=== PATIENT | male | born 1955 | race Caucasian/White ===

== ENCOUNTER 2018-05-30 13:23 | Emergency (ER) | payer MEDICARE ==
[~2018-05-30] VITALS: Ht 180.3 cm; Wt 90.7 kg
[~2018-05-30 13:23] MED LIST: AMOXICILLIN875 MG PO; ANTIVERT12.5 MG PO; ASPIRIN EC81 M1 PO; ASPIRIN325 PO; ATORVASTATIN CA10 MG PO; AZITHROMYCIN 2250 MG PO; CALCIUM 500 +1 EAC5 PO; CARVEDILOL6.25 MG; CARVEDILOL6.25 MG PO; CEFDINIR300 MG PO; CENTRUM SILVER1 EAC2 PO; COREG; COREG CR20 MG; DOXYCYCLINE 10100 M1 PO; DUONEB 2.5-0.5 M3 ML INH; FENOFIBRATE160 MG PO; FLEXERIL PO; GLUCOPHAGE500 MG; GLYBURIDE 5 MG T5 M1 PO; HYDROCODONE-AP1 EAC6 PO; IBUPROFEN 800800 M1 PO; IMDUR 30 MG TAB30 M1 PO; INVOKANA100 MG PO; JANUMET 50-1,01 EACH PO; JANUMET 50-5001 EACH; JANUMET XR 50-1 EAC1 PO; LIPITOR 10 MG10 M1 PO; MEDROLDOSEPACK PO; METFORMIN; MOBIC15 MG PO; NITROGLYCERIN0.4 MG SUBLING; NORCO 5-325 TA1 EACH PO; PENICILLIN VK500 M1 PO; PREDNISONE 10 M10 M1 PO; PREDNISONE 10 M10 MG PO; PREVACID30 MG PO; PROAIR HFA8.5 GM INH; TOPAMAX 100 MG100 MG PO; TOPAMAX100 MG PO; TRICOR145 MG PO; VENTOLIN HFA 1818 GM INH; VIMPAT100 MG PO; VYTORIN 10-401 EACH; ZOFRAN ODT4 MG PO; ZPAK PO
[2018-05-30] MEDS ORDERED: NEXIUM40 MG PO (13:39)
[2018-05-30] MEDS ORDERED: VITAMIN D1000 UNI1 PO (13:39)
[2018-05-30] MEDS ORDERED: NORCO 5-325 TA1 EACH PO (13:40)
[2018-05-30] MEDS ORDERED: LISINOPRIL5 MG PO (13:41)
[2018-05-30] MEDS ORDERED: IPRAT-ALBUT 0.5-3 ML INH (13:41)
[2018-05-30] MEDS ORDERED: NITROSTAT0.4 M1 PO (13:42)
[2018-05-30 14:10] LABS: HEMATOCRIT 42.2 % (42.0-52.0); MCH 27.9 pg (26.0-34.0); MCHC 33.2 g/dL (28.0-37.0); MCV 83.8 fL (80.0-100.0); MPV 8.8 fl. (7.2-11.1); NUCLEATED RBCS 0 /100WBC; PLATELET COUNT* 317 thou/uL (150-400); RBC 5.03 mil/uL (4.50-6.00); WBC 14.8 thou/uL (4.0-11.0)
[2018-05-30 14:18] LABS: ANION GAP 10 mmol/L (7-16); BUN 23 mg/dL (7-18); CALCIUM 9.3 mg/dL (8.5-10.1); CHLORIDE 102 mmol/L (98-107); CO2 23 mmol/L (21-32); CREATININE 1.4 mg/dL (0.6-1.3); GLUCOSE 215 mg/dL (70-99); POTASSIUM 4.4 mmol/L (3.5-5.1); SODIUM 135 mmol/L (136-145)
[2018-05-30 14:25] LABS: ALBUMIN 3.6 g/dL (3.4-5.0); ALKALINE PHOSPHATASE 56 U/L (46-116); SGOT 17 U/L (15-37); SGPT 33 U/L (30-65); TOTAL BILIRUBIN 0.6 mg/dL (<0.1-1.0); TROPONIN-I LEVEL <0.06 ng/mL (<0.06)
[2018-05-30 14:30] LABS: ABSOLUTE BASOPHILS 0.1 thou/uL (0.0-0.2); ABSOLUTE EOSINOPHILS 0.1 thou/uL (0.0-0.7); ABSOLUTE LYMPHOCYTES 1.3 thou/uL (0.8-5.3); ABSOLUTE MONOCYTES 0.4 thou/uL (0.0-1.2); ABSOLUTE NEUTROPHILS 12.7 thou/uL (1.6-8.1); PLATELET ESTIMATE ADEQUATE
[2018-05-30 15:19] LABS: URINE BILIRUBIN NEGATIVE (Negative); URINE BLOOD NEGATIVE (Negative); URINE CLARITY CLEAR; URINE COLOR YELLOW; URINE GLUCOSE-RANDOM 3+ (Negative); URINE KETONES NEGATIVE (Negative); URINE LEUKOCYTES-REFLEX NEGATIVE (Negative); URINE NITRITE-REFLEX NEGATIVE (Negative); URINE PROTEIN NEGATIVE (Negative); URINE SPECIFIC GRAVITY 1.015 (1.005-1.030); URINE UROBILINOGEN 0.2 E.U./dl (0.2-1.0)
[2018-05-30 15:25] LABS: AMP/METHAMP Negative (Negative); BARBITURATES Negative (Negative); BENZODIAZEPINES Negative (Negative); COCAINE Negative (Negative); METHADONE Negative (Negative); OPIATES Negative (Negative); PCP Negative (Negative); THC Negative (Negative)
[2018-05-30 17:25] VITALS: BP 151/83
--- NOTE | 2018-06-01 13:30 | EKG ---
[place] [address] ELECTROCARDIOGRAM REPORT Name: DANITZA CUMMINS Room: [facility]#: [id number] Admission: 05/30/18 Attend Phys: Discharge: 05/30/18 Date of : 57 Report #: [id number] THIS REPORT FOR: //name// [facility] ED Test Date: 2018-05-30 Test Time: 13:32:53 Pat Name: DANITZA CUMMINS Department: Room: Gender: M Trauma Coordinator: Juan Jose MACDONALD : 1955 Requested By: Sonia dEwards Order Number: [id number] MD: Mark Eldridge Measurements Intervals [place] Rate: 106 P: 53 [place]: 156 QRS: 17 QRSD: 115 T: 30 QT: 342 QTc: 455 Interpretive Statements sinus tach Nonspecific intraventricular conduction delay Inferior infarct, old Compared to ECG 03/28/2017 08:03:09 Intraventricular conduction delay now present Myocardial infarct finding still present Electronically Signed On 06-01-2018 13:30:14 CDT by Mark Eldridge [email or web address] <ELECTRONICALLY SIGNED> By: Mark Eldridge MD, [facility] 06/01/18 1330 1332 1332 Mark Eldridge MD, [facility] /EPI
== END 2018-05-30 17:25 | disposition home or self-care (01) ==
LOC: M.ERS 13:23
PROVIDERS: Nurse Practitioner Family
DX: R55 Syncope and collapse (principal); R06.00 Dyspnea, unspecified; E11.9 Type 2 diabetes mellitus without complications; J45.909 Unspecified asthma, uncomplicated; E78.00 Pure hypercholesterolemia, unspecified; I10 Essential (primary) hypertension; Z88.8 Allergy status to other drugs, medicaments and biological substances

== ENCOUNTER → 2018-10-27 | Outpatient (CLI) | payer MEDICARE ==
[~2018-10-27] MED LIST changes: +IPRAT-ALBUT 0.5-3 ML INH; +LISINOPRIL5 MG PO; +NEXIUM40 MG PO; +NITROSTAT0.4 M1 PO; +VITAMIN D1000 UNI1 PO
== END ==
LOC: M.ULTRA 10-19 13:00
DX: I73.9 Peripheral vascular disease, unspecified (principal); M79.661 Pain in right lower leg; M79.662 Pain in left lower leg

== ENCOUNTER → 2019-04-06 | Outpatient (CLI) | payer MEDICARE ==
--- NOTE | 2019-04-06 13:25 | 2DMMODE ---
[place] [address] 2 D/M-MODE ECHOCARDIOGRAM Name: GAUTAM CUMMINS Room: [facility]#: [id number] Admission: 04/06/19 Attend Phys: Gilles Cyr, Discharge: Date of : 57 Date of Service: 04/06/19 1325 Report #: [id number] THIS REPORT FOR: //name// APPROVED REPORT Study performed: 04/06/2019 10:53:16 EXAM: Comprehensive 2D, Doppler, and color-flow Echocardiogram Patient Location: Out-Patient BSA: 2.06 HR: 80 bpm BP: 130/74 mmHg Other Information Study Quality: Good Indications CAD Cardiomyopathy Volumes Left Atrial Volume (Systole) LA ESV Index: 14.00 mL/m2 Left Ventricle The left ventricle is normal size. akinesis noted of the base of the inferior wall There is normal left ventricular wall thickness. Left ventricular systolic function is mildly decreased. LVEF is 40-45%. Grade I - abnormal relaxation pattern. Right Ventricle The right ventricle is normal size. The right ventricular systolic function is normal. Atria The left atrium size is normal. The right atrium size is normal. Aortic Valve Aortic valve is mildly calcified. No aortic regurgitation is present. There is no aortic valvular stenosis. Mitral Valve Mild mitral annular calcification. [place] [address] 2 D/M-MODE ECHOCARDIOGRAM Name: GAUTAM CUMMINS Room: [facility]#: [id number] Admission: 04/06/19 Attend Phys: Gilles Cyr, Discharge: Date of : 57 Date of Service: 04/06/19 1325 Report #: [id number] regurgitation noted. No evidence of mitral valve stenosis. Tricuspid Valve The tricuspid valve is normal in structure. There is no tricuspid valve regurgitation noted. Pulmonic Valve The pulmonary valve is normal in structure. There is no pulmonic valvular regurgitation. Great Vessels The aortic root is normal in size. IVC is normal in size and collapses >50% with inspiration. Pericardium There is no pericardial effusion. <Conclusion> LVEF is 40-45%. akinesis noted of the base of the inferior wall Aortic valve is mildly calcified. <ELECTRONICALLY SIGNED> By: Gautam Escobedo MD, FAC 04/06/19 1325 24 24 Gautam Escobedo MD, FAC /INF
== END ==
LOC: M.CRD 10:47
DX: I08.0 Rheumatic disorders of both mitral and aortic valves (principal); I25.10 Atherosclerotic heart disease of native coronary artery without angina pectoris; I25.5 Ischemic cardiomyopathy

== ENCOUNTER 2020-09-02 06:36 | Emergency (ER) | payer MEDICARE ==
[~2020-09-02] VITALS: Ht 175.3 cm; Wt 83.9 kg
[2020-09-02 07:05] LABS: ABSOLUTE BASOPHILS 0.1 thou/uL (0.0-0.2); ABSOLUTE EOSINOPHILS 0.3 thou/uL (0.0-0.7); ABSOLUTE LYMPHOCYTES 1.7 thou/uL (0.8-5.3); ABSOLUTE MONOCYTES 0.7 thou/uL (0.0-1.2); ABSOLUTE NEUTROPHILS 3.6 thou/uL (1.6-8.1); BASOPHILS 2.3 %; EOSINOPHILS 4.6 %; HEMATOCRIT 35.6 % (42.0-52.0); LYMPHOCYTES 26.6 %; MCH 27.5 pg (26.0-34.0); MCHC 33.8 g/dL (28.0-37.0); MCV 81.3 fL (80.0-100.0); MONOCYTES 10.7 %; MPV 7.9 fl. (7.2-11.1); NUCLEATED RBCS 0 /100WBC; PLATELET COUNT* 356 thou/uL (150-400); POLYS 55.8 %; RBC 4.38 mil/uL (4.50-6.00); RDW-CV 14.8 % (10.5-14.5); WBC 6.5 thou/uL (4.0-11.0)
[2020-09-02 07:15] LABS: CREATININE 1.1 mg/dL (0.6-1.3); POTASSIUM 4.5 mmol/L (3.5-5.1)
[2020-09-02 07:17] LABS: INR 1.1; PROTIME 11.1 Seconds (9.20-11.50)
[2020-09-02 07:24] LABS: ALBUMIN 3.7 g/dL (3.4-5.0); MAGNESIUM 1.5 mg/dL (1.8-2.4); TOTAL BILIRUBIN 0.6 mg/dL (<0.1-1.0); TOTAL PROTEIN 7.1 g/dL (6.4-8.2)
[2020-09-02 08:47] LABS: URINE BILIRUBIN NEGATIVE (Negative); URINE BLOOD TRACE (Negative); URINE CLARITY CLEAR; URINE COLOR YELLOW; URINE GLUCOSE-RANDOM NEGATIVE (Negative); URINE KETONES NEGATIVE (Negative); URINE LEUKOCYTES-REFLEX NEGATIVE (Negative); URINE NITRITE-REFLEX NEGATIVE (Negative); URINE PROTEIN NEGATIVE (Negative); URINE UROBILINOGEN 0.2 E.U./dl (0.2-1.0)
[2020-09-02] MEDS ORDERED: DIAZEPAM 5 MG5 MG PO (10:58)
[2020-09-02] MEDS ORDERED: TORADOL 10 MG T10 MG PO (10:58)
[2020-09-02 11:14] VITALS: BP 110/55
--- NOTE | 2020-09-03 18:24 | EKG ---
[place] [address] ELECTROCARDIOGRAM REPORT Name: DANITZA CUMMINS Room: [facility]#: [id number] Admission: 09/02/20 Attend Phys: Discharge: 09/02/20 Date of : 57 Date of Service: 09/02/20 0638 Report #: [id number] THIS REPORT FOR: //name// [facility] ED Test Date: 2020-09-02 Test Time: 06:38:08 Pat Name: DANITZA CUMMINS Department: Room: Gender: Blueprint Trimmer: : 1955 Requested By: Saskia Parra Order Number: [id number] MD: Gilles Cyr Measurements Intervals [place] Rate: 77 P: 50 [place]: 164 QRS: 30 QRSD: 134 T: 10 QT: 397 QTc: 450 Interpretive Statements Sinus rhythm Right bundle branch block Inferior infarct, old Compared to ECG 05/30/2018 13:32:53 Right bundle-branch block now present Sinus tachycardia no longer present Intraventricular conduction delay no longer present Electronically Signed On 09-03-2020 18:24:14 CDT by Gilles Cyr [email or web address] <ELECTRONICALLY SIGNED> By: Gilles Cyr MD, FACC 09/03/20 1824 0638 0638 Gilles Cyr MD, FAC /EPI
== END 2020-09-02 11:15 | disposition home or self-care (01) ==
LOC: M.ERS 06:36
PROVIDERS: Emergency Medicine
DX: G43.909 Migraine, unspecified, not intractable, without status migrainosus (principal); E78.00 Pure hypercholesterolemia, unspecified; E11.9 Type 2 diabetes mellitus without complications; J45.909 Unspecified asthma, uncomplicated; I10 Essential (primary) hypertension; Z88.8 Allergy status to other drugs, medicaments and biological substances; Z91.030 Bee allergy status

== ENCOUNTER → 2020-09-13 | Outpatient (CLI) | payer MEDICARE ==
[~2020-09-13] MED LIST changes: +DIAZEPAM 5 MG5 MG PO; +TORADOL 10 MG T10 MG PO
== END ==
LOC: M.MRI 16:43
PROVIDERS: ATTEND Family Medicine
DX: I67.82 Cerebral ischemia (principal); R51.9 Headache, unspecified

== ENCOUNTER 2020-10-08 14:50 | Emergency (ER) | payer MEDICARE ==
[~2020-10-08] VITALS: Ht 180.3 cm; Wt 79.4 kg
[2020-10-08] MEDS ORDERED: FLEXERIL PO (15:19)
[2020-10-08 16:29] VITALS: BP 120/65
== END 2020-10-08 16:29 | disposition home or self-care (01) ==
LOC: M.ERS 14:50
DX: S80.02XA Contusion of left knee, initial encounter (principal); S80.01XA Contusion of right knee, initial encounter; E78.5 Hyperlipidemia, unspecified; E11.9 Type 2 diabetes mellitus without complications; I10 Essential (primary) hypertension; J45.909 Unspecified asthma, uncomplicated; Z95.1 Presence of aortocoronary bypass graft; Z91.030 Bee allergy status; Z88.8 Allergy status to other drugs, medicaments and biological substances; W23.0XXA Caught, crushed, jammed, or pinched between moving objects, initial encounter; Y93.89 Activity, other specified; Y92.89 Other specified places as the place of occurrence of the external cause; Y99.8 Other external cause status

== ENCOUNTER 2021-02-22 13:16 | Emergency (ER) | payer MEDICARE ==
[~2021-02-22] VITALS: Ht 180.3 cm; Wt 108.9 kg
[2021-02-22 13:48] LABS: ABSOLUTE BASOPHILS 0.1 thou/uL (0.0-0.2); ABSOLUTE EOSINOPHILS 0.2 thou/uL (0.0-0.7); ABSOLUTE LYMPHOCYTES 1.3 thou/uL (0.8-5.3); ABSOLUTE MONOCYTES 0.6 thou/uL (0.0-1.2); ABSOLUTE NEUTROPHILS 4.6 thou/uL (1.6-8.1); BASOPHILS 1.2 %; EOSINOPHILS 3.1 %; HEMATOCRIT 38.2 % (42.0-52.0); HEMOGLOBIN 12.5 gm/dL (14.0-18.0); LYMPHOCYTES 19.4 %; MCH 27.4 pg (26.0-34.0); MCHC 32.8 g/dL (28.0-37.0); MCV 83.3 fL (80.0-100.0); MONOCYTES 8.2 %; MPV 8.7 fl. (7.2-11.1); NUCLEATED RBCS 0 /100WBC; PLATELET COUNT* 248 thou/uL (150-400); POLYS 68.1 %; RBC 4.58 mil/uL (4.50-6.00); RDW-CV 15.6 % (10.5-14.5); WBC 6.7 thou/uL (4.0-11.0)
[2021-02-22 13:56] LABS: CALCIUM 9.3 mg/dL (8.5-10.1); CREATININE 0.9 mg/dL (0.6-1.3); POTASSIUM 4.1 mmol/L (3.5-5.1)
[2021-02-22 13:58] LABS: PROTIME 10.9 Seconds (9.20-11.50)
[2021-02-22 14:01] LABS: ALBUMIN 3.6 g/dL (3.4-5.0); TOTAL BILIRUBIN 0.9 mg/dL (<0.1-1.0); TOTAL PROTEIN 6.8 g/dL (6.4-8.2)
--- NOTE | 2021-02-22 14:57 | EKG ---
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: : 1955 Requested By: Saturnino Carpenter Order Number: [id number] MD: Gautam Escobedo Measurements Intervals [place] Rate: 73 P: 42 AR: 153 QRS: 6 QRSD: 130 T: -14 QT: 399 QTc: 440 Interpretive Statements Sinus rhythm Right bundle branch block Inferior infarct, age indeterminate Baseline wander in lead(s) II,aVR Compared to ECG 09/02/2020 06:38:08 No significant changes Electronically Signed On 02-22-2021 14:56:45 CDT by Gautam Escobedo [email or web address] <ELECTRONICALLY SIGNED> By: Gautam Escobedo MD, [facility] 02/22/21 1456 1323 1323 Gautam Escobedo MD, [facility] /EPI
[2021-02-22] MEDS ORDERED: NORCO5 PO ×5 (16:00→16:22)
[2021-02-22 16:27] VITALS: BP 128/60
== END 2021-02-22 16:28 | disposition home or self-care (01) ==
LOC: M.ERS 13:16
PROVIDERS: Physician Assistant
DX: M25.551 Pain in right hip (principal); R07.89 Other chest pain; E78.5 Hyperlipidemia, unspecified; E11.9 Type 2 diabetes mellitus without complications; J45.909 Unspecified asthma, uncomplicated; I10 Essential (primary) hypertension; Z88.8 Allergy status to other drugs, medicaments and biological substances; Z91.030 Bee allergy status

== ENCOUNTER 2021-03-05 15:51 | Inpatient (IN) | payer MEDICARE ==
[~2021-03-05] VITALS: Ht 177.8 cm; Wt 84.4 kg
--- NOTE | ~2021-03-05 | EMS ---
[address] [address] EMS Patient Care Report Name: DANITZA MARCH Room: [address] IN ..#: [id number] Admission: 03/05/21 Attend Phys: Macarena Ayala Discharge: Date of : 57 Report #: [id number] THIS REPORT FOR: //name// Report Transmitted: 03/06/2021 01:17 EMS Care Summary [facility] [place] Incident [id number] @ 03/05/2021 14:47 Incident Location [address] [place] [address] Patient danitza march Male, 65 Years 1955 Patient Address [address] [place] [address] Patient History Heart disease, unspecified,Coronary Artery Bypass Graft (CABG),Hyperlipidemia,Type 2 diabetes mellitus,Anxiety disorder, unspecified,Gastro-Esophageal Reflux Disease (GERD),Cancer - Other Cancer Condition,Hypertension (HTN),Edema,Chronic Obstructive Pulmonary Disease (COPD), Patient Allergies , Patient Medications Albuterol, Aspirin, Lipitor, Carvedilol, Neurontin, Glyburide, Chief Complaint Pain Disposition Transported No Lights/[facility] Dispatch Reason Back Pain (Non-Traumatic) Transported To [address] [address] EMS Patient Care Report Name: DANITZA MARCH Room: [facility] IN [facility]#: [id number] Admission: 03/05/21 Attend Phys: Macarena Ayala Discharge: Date of : 57 Report #: [id number] [facility] WAS DISPATCHED TO THE LOCAL LISTED ADDRESS ON BACK PAIN. ON SCENE, WE contacted IFD WHO WAS AT PATIENT SIDE. USING A CANE, THE PATIENT WAS WALKING OUT FROM THE BACK BEDROOM INTO THE LIVINGROOM. THE PATIENT HAD NO OBVIOUS IMMEDIATE LIFE THREATS OR SIGNS OF DISTRESS. THE PATIENT SAT DOWN IN A LIVING ROOM CHAIR, A SET OF VITALS AND LUNG SOUNDS WERE obtained ( NOTED). I COMPLETED A PHYSICAL ASSESSMENT WHILE OBTAINING A PATIENT HISTORY AND DETAILS OF THE CURRENT EVENT. THE PATIENT STATED FOR THE LAST TEN (10) DAYS HE HAS BEEN experiencing RIGHT SIDED LEG AND BACK PAIN. TODAY HE STARTED HAVING LEFT FLANK PAIN. THE PATIENT STATED HE WENT TO THE HOSPITAL ON February THERE, HE WAS DIAGNOSED WITH SCIATICA. HE STATED THE PAIN IS PRESENTING THE SAME IT DID THEN, BUT MUCH WORSE. THE PATIENT STATED THE LEFT FLANK PAIN IS NEW TODAY. THE PATIENT DENIED ANY FALLS, recent SURGERIES, OR CHANGE IN HIS DAILY ACTIVITIES. HE REQUESTED TRANSPORT TO THE LISTED HOSPITAL. USING HIS CANE, THE PATIENT WAS ABLE TO WALK OUT TO AND SIT ON THE STRETCHER LOCATED JUST OUTSIDE THE FRONT DOOR. HE WAS SECURED WITH THE LAP BELTS AND TRANSPORTED TO THE AMBULANCE WHERE HE AND HIS CANE WERE LOADED AND SECURED WITHOUT INCIDENT. INSIDE THE AMBULANCE THE patient WAS PLACED ON THE MONITOR AND A 12 LEAD WAS acquired. AN IV WITH BLOOD DRAWL WERE SECURED AND BLOOD SUGAR OBTAINED. FLUIDS WERE GIVEN. VITALS WERE MONITORED EN-ROUTE. THE PATIENT REMAINED STABLE AND TALKATIVE DURING TRANSPORT. AT DESTINATION, THE PATIENT SIGNED THE PRIVACY AND REFUSAL FORM. HE (AND HIS BELONGINGS) WAS UNLOADED FROM THE AMBULANCE AND TAKEN INTO ROOM TEN (10). THE STRETCHER WAS LOWERED. THE PATIENT WAS ABLE TO STAND, WALK TO AND GET IN THE HOSPITAL BED WITHOUT ASSISTANCE OR INCIDENT. I GAVE ALEJANDRO WILHELM A VERBAL PATIENT REPORT AND THE BLOOD WORK. I PLACED THE PATIENTS CANE IN THE CORNER OF THE ROOM, LETTING THE NURSE AND PATIENT KNOW WERE I WAS LEAVING IT. ALEJANDRO WILHELM SIGNED THE RECEIVING FACILITY FORM, COMPLETING THE TRANSFER OF CARE. [facility] CREW CLEARED THE CALL. Initial Vitals @14:56Pain: 07/02, @15:46Pain: 07/02, @14:58SpO2: 98, @15:27SpO2: 97, @15:37SpO2: 98, @15:45SpO2: 97, @15:16 @15:14 @14:58P: 81,R: 14,BP: 105/64, @15:27P: 76,R: 14,BP: 120/61, @15:37P: 65,R: 14,BP: 129/58, @15:45P: 67,R: 14,BP: 123/45, @14:58GCS: 15, @15:27GCS: 15, @15:37GCS: 15, @15:45GCS: 15, @14:53 [place] [address] EMS Patient Care Report Name: MARIA GDANITZA JAJA Room: [address] IN .R.#: [id number] Admission: 03/05/21 Attend Phys: Macarena Ayala Discharge: Date of : 57 Report #: [id number] @15:20Glucose: 216, Assessments @14:53MENTAL:SKIN:HEENT:LUNG SOUNDS:ABDOMEN:PELVIS//GI:EXTREMITIES:PULSE:NEURO: Impression Acute Pain, not elsewhere classified Procedures @15:19 cc () Site: Forearm-LeftResponse: UnchangedSucceeded@15:19 cc () Site: Forearm-LeftResponse: UnchangedSucceeded@15:1612-Lead ECGResponse: UnchangedSucceeded@15:143-Lead ECGResponse: UnchangedSucceeded Timeline 14:46,Call Received 14:46,Dispatch Notified 14:46,Psap Call 14:47,Dispatched 14:47,En Route 14:52,On Scene 14:53,At Patient 14:53,BP: / M,PULSE: ,RR: R,SPO2: Ox,ETCO2: ,BG: ,PAIN: ,GCS: , 14:56,BP: / M,PULSE: ,RR: R,SPO2: Ox,ETCO2: ,BG: ,PAIN: 8,GCS: , 14:58,BP: / M,PULSE: ,RR: R,SPO2: 98 Ox,ETCO2: ,BG: ,PAIN: ,GCS: , 14:58,BP: 105/64 M,PULSE: 81,RR: 14 R,SPO2: Ox,ETCO2: ,BG: ,PAIN: ,GCS: , 14:58,BP: / M,PULSE: ,RR: R,SPO2: Ox,ETCO2: ,BG: ,PAIN: ,GCS: 15, 15:14,3-Lead ECG,Response: UnchangedSucceeded, 15:14,BP: / M,PULSE: ,RR: R,SPO2: Ox,ETCO2: ,BG: ,PAIN: ,GCS: , 15:16,12-Lead ECG,Response: UnchangedSucceeded, 15:16,BP: / M,PULSE: ,RR: R,SPO2: Ox,ETCO2: ,BG: ,PAIN: ,GCS: , 15:19, cc Site: Forearm-Left,Response: UnchangedSucceeded, 15:19, cc Site: Forearm-Left,Response: UnchangedSucceeded, 15:20,BP: / M,PULSE: ,RR: R,SPO2: Ox,ETCO2: ,B,PAIN: ,GCS: , 15:27,BP: / M,PULSE: ,RR: R,SPO2: 97 Ox,ETCO2: ,BG: ,PAIN: ,GCS: , 15:27,BP: 120/61 M,PULSE: 76,RR: 14 R,SPO2: Ox,ETCO2: ,BG: ,PAIN: ,GCS: , 15:27,BP: / M,PULSE: ,RR: R,SPO2: Ox,ETCO2: ,BG: ,PAIN: ,GCS: 15, 15:29,Depart Scene 15:37,BP: / M,PULSE: ,RR: R,SPO2: 98 Ox,ETCO2: ,BG: ,PAIN: ,GCS: , 15:37,BP: 129/58 M,PULSE: 65,RR: 14 R,SPO2: Ox,ETCO2: ,BG: ,PAIN: ,GCS: , 15:37,BP: / M,PULSE: ,RR: R,SPO2: Ox,ETCO2: ,BG: ,PAIN: ,GCS: 15, 15:45,BP: / M,PULSE: ,RR: R,SPO2: 97 Ox,ETCO2: ,BG: ,PAIN: ,GCS: , 15:45,BP: 123/45 M,PULSE: 67,RR: 14 R,SPO2: Ox,ETCO2: ,BG: ,PAIN: ,GCS: , 15:45,BP: / M,PULSE: ,RR: R,SPO2: Ox,ETCO2: ,BG: ,PAIN: ,GCS: 15, 15:46,BP: / M,PULSE: ,RR: R,SPO2: Ox,ETCO2: ,BG: ,PAIN: 8,GCS: , 15:47,At Destination [address] [address] EMS Patient Care Report Name: DANITZA MARCH Room: [address] IN [facility]#: [id number] Admission: 03/05/21 Attend Phys: Macarena Ayala Discharge: Date of : 57 Report #: [id number] 16:05,Call Closed Disclaimer v1.1 Copyright 2020 [email or web address] This EMS Care Summary contains data elements from the applicable legal record (which may be displayed differently). It is designed to provide pertinent information for the following purposes: continuity of care, clinical quality, and state data reporting. The complete legal record is available to ED staff and administrators of the receiving hospital in [employer] Patient Tracker. All data is provided "as is."
[~2021-03-05 15:51] MED LIST changes: +NORCO5 PO
[2021-03-05 15:55] VITALS: BP 141/44
[2021-03-05 16:16] LABS: ABSOLUTE BASOPHILS 0.1 thou/uL (0.0-0.2); ABSOLUTE EOSINOPHILS 0.3 thou/uL (0.0-0.7); ABSOLUTE LYMPHOCYTES 1.2 thou/uL (0.8-5.3); ABSOLUTE MONOCYTES 1.2 thou/uL (0.0-1.2); BASOPHILS 0.8 %; HEMATOCRIT 42.3 % (42.0-52.0); HEMOGLOBIN 13.8 gm/dL (14.0-18.0); LYMPHOCYTES 8.4 %; MCHC 32.6 g/dL (28.0-37.0); MCV 82.8 fL (80.0-100.0); MONOCYTES 8.6 %; MPV 9.1 fl. (7.2-11.1); NUCLEATED RBCS 0 /100WBC; PLATELET COUNT* 326 thou/uL (150-400); POLYS 80.2 %; RBC 5.11 mil/uL (4.50-6.00); RDW-CV 15.2 % (10.5-14.5); WBC 13.7 thou/uL (4.0-11.0)
[2021-03-05 16:39] LABS: CALCIUM 9.1 mg/dL (8.5-10.1); CREATININE 1.1 mg/dL (0.6-1.3); POTASSIUM 4.4 mmol/L (3.5-5.1)
[2021-03-05 16:44] LABS: ALBUMIN 3.5 g/dL (3.4-5.0); TOTAL BILIRUBIN 0.8 mg/dL (<0.1-1.0); TOTAL PROTEIN 6.6 g/dL (6.4-8.2)
[2021-03-05 18:11] LABS: URINE BILIRUBIN NEGATIVE (Negative); URINE BLOOD 3+ (Negative); URINE CLARITY CLEAR; URINE COLOR YELLOW; URINE GLUCOSE-RANDOM 2+ (Negative); URINE KETONES NEGATIVE (Negative); URINE LEUKOCYTES-REFLEX NEGATIVE (Negative); URINE NITRITE-REFLEX NEGATIVE (Negative); URINE PROTEIN NEGATIVE (Negative); URINE SPECIFIC GRAVITY >= 1.030 (1.005-1.030); URINE UROBILINOGEN 0.2 E.U./dl (0.2-1.0)
[2021-03-05 18:18] LABS: HYALINE CASTS 0-3 Few /LPF (None Seen); SQUAMOUS 0-3 Few /LPF (0-3); URINE RBC >20 Many /HPF (0-2)
[2021-03-05 18:19] LABS: BACTERIA-REFLEX 1-9 Few /HPF (None Seen); CRYSTALS None Seen /LPF (None Seen); MUCUS None Seen strn/LPF (None Seen); URINE WBC-REFLEX None Seen /HPF (0-5)
[2021-03-05 18:34] VITALS: BP 122/50
--- NOTE | 2021-03-05 18:52 | NUR ---
PT JUST ARRIVED TO UNIT VIA STRETCHER. REPORT RECEIVED FROM ALEJANDRO CISNEROS IN THE ER. PT GIVEN BOX LUNCH AND BLANKETS.
[2021-03-05 21:27] VITALS: BP 123/57
[2021-03-05] MEDS ORDERED: GABAPENTIN100 MG PO (23:44)
[2021-03-05] MEDS ORDERED: JANUMET 50-1,01 EACH PO (23:48)
[2021-03-05] MEDS ORDERED: ZETIA10 MG PO (23:49)
[2021-03-06 04:22] LABS: CALCIUM 8.9 mg/dL (8.5-10.1); CREATININE 1.5 mg/dL (0.6-1.3); POTASSIUM 3.9 mmol/L (3.5-5.1)
[2021-03-06 04:24] LABS: HEMATOCRIT 35.5 % (42.0-52.0); HEMOGLOBIN 11.9 gm/dL (14.0-18.0); MCH 27.4 pg (26.0-34.0); MCHC 33.5 g/dL (28.0-37.0); MCV 81.7 fL (80.0-100.0); MPV 8.9 fl. (7.2-11.1); RBC 4.35 mil/uL (4.50-6.00); RDW-CV 15.3 % (10.5-14.5); WBC 8.7 thou/uL (4.0-11.0)
--- NOTE | 2021-03-06 07:00 | NUR ---
PATIENT SLEPT WELL THROUGHOUT THE NIGHT. VSS ON RA. ADMISSION ASSESSMENT CHARTED. MEDICATIONS GIVEN ORDERED AND CHARTED. PATIENT HAS REMAINED NPO SINCE MIDNIGHT. UROLOGY CONSULTED THIS AM. PATIENT IS UP WITH SBA TO THE BATHROOM. NEW IV INSERTED IN RIGHT HAND-SL. FALL PRECAUTIONS IN PLACE AND HOURLY ROUNDS MADE. PATIENT INSTRUCTED TO USE CALL LIGHT WHEN NEEDING ASSISTANCE. WILL CONTINUE WITH PLAN OF CARE AND NURSING TO MONITOR.
[2021-03-06 08:30] VITALS: BP 112/61
--- NOTE | 2021-03-06 11:08 | EKG ---
[place] [address] ELECTROCARDIOGRAM REPORT Name: DANITZA CUMMINS Room: [address] ADM IN M.R.#: [id number] Admission: 03/05/21 Attend Phys: Marcelino Ray Discharge: Date of : 57 Date of Service: 03/05/21 1600 Report #: [id number] THIS REPORT FOR: //name// [facility] ED Test Date: 2021-03-05 Test Time: 16:00:42 Pat Name: DANITZA CUMMINS Department: Room: [facility] Gender: M Miner Pick: CCD : 1955 Requested By: Lv Goff Order Number: [id number] MD: Danitza Escobedo Measurements Intervals [place] Rate: 71 P: 55 DE: 151 QRS: 32 QRSD: 129 T: 2 QT: 406 QTc: 442 Interpretive Statements Pacemaker spikes or artifacts Sinus rhythm Right bundle branch block Inferior infarct, old Artifact in lead(s) I,aVR,aVL,aVF Compared to ECG 02/22/2021 13:23:54 No significant changes Electronically Signed On 03-06-2021 11:08:14 CDT by Danitza Escobedo [email or web address] <ELECTRONICALLY SIGNED> By: Danitza Escobedo MD, FACC 03/06/21 1108 1600 1600 Danitza Escobedo MD, [facility] /EPI
--- NOTE | 2021-03-06 14:05 | NUR ---
Pt is A&O. Resides at home with family. Independent. Pt has a cane that he can use for mobility. Hx of HH. No hx of SNF. Pt having procedure today. Cr continues to go up. Goal is home at dc, no needs anticipated.
--- NOTE | 2021-03-06 19:57 | NUR ---
Pt remained A&O x4 for entire shift. Vital signs stable. Pt pleasant with staff. Pt complains of pain mostly in on right side hip and leg. Pt gone for urology procedure from 1400-1530ish. Pt tolerated procedure well and notes feeling better afterwards. Bed in low position, call light within reach.
--- NOTE | 2021-03-06 22:30 | NUR ---
NURSE IN TO CHECK ON PATIENT AND PATIENT HAD PULLED STENT COMPLETELY OUT AND IT WAS LAYING IN THE BED. PATIENT NOT COMPLAINING OF ANY PAIN AT THIS TIME. STENT KEPT IN ROOM FOR TO SEE IN THE AM. WILL CONTINUE TO MONITOR.
--- NOTE | 2021-03-06 22:35 | NUR ---
CONTACTED UROLOGY REGARDING PATIENT PULLING STENT WIRE PARTIALLY OUT AND URINE LEAKING OUT CONTINUOUSLY. STATED TO KEEP STENT IF PATIENT PULLS IT OUT ALL THE WAY. INFORMED BY TO MONITOR VITAL SIGNS AND TO CALL IF PATIENT SPIKES A FEVER OR BECOMES TACHY AND IF NURSE HAS ANY OTHER FURTHER QUESTIONS OR CONCERNS.
[2021-03-07 00:23] VITALS: BP 137/69
[2021-03-07 04:18] VITALS: BP 123/70
[2021-03-07 04:28] LABS: ABSOLUTE BASOPHILS 0.1 thou/uL (0.0-0.2); ABSOLUTE LYMPHOCYTES 0.7 thou/uL (0.8-5.3); ABSOLUTE MONOCYTES 0.6 thou/uL (0.0-1.2); ABSOLUTE NEUTROPHILS 7.2 thou/uL (1.6-8.1); BASOPHILS 0.6 %; EOSINOPHILS 0.1 %; HEMATOCRIT 36.7 % (42.0-52.0); HEMOGLOBIN 12.1 gm/dL (14.0-18.0); LYMPHOCYTES 8.1 %; MCH 27.4 pg (26.0-34.0); MCV 82.9 fL (80.0-100.0); MONOCYTES 6.6 %; MPV 8.9 fl. (7.2-11.1); NUCLEATED RBCS 0 /100WBC; PLATELET COUNT* 257 thou/uL (150-400); POLYS 84.6 %; RBC 4.43 mil/uL (4.50-6.00); RDW-CV 15.6 % (10.5-14.5); WBC 8.6 thou/uL (4.0-11.0)
[2021-03-07 04:34] LABS: CALCIUM 9.2 mg/dL (8.5-10.1); CREATININE 1.3 mg/dL (0.6-1.3); POTASSIUM 4.3 mmol/L (3.5-5.1)
[2021-03-07 08:00] VITALS: BP 113/71
--- NOTE | 2021-03-07 08:42 | NUR ---
PATIENT HAS SLEPT OFF AND ON DURING THE NIGHT. VSS ON RA. MEDICATIONS GIVEN ORDERED AND CHARTED. UROLOGY HERE THIS AM AND SPOKE WITH THEM REGARDING STENT THAT WAS PULLED OUT BY PATIENT. INFORMED THEM THAT STENT IS IN ROOM IN BAG FOR THEM TO OBSERVED AND LOOK AT. PATIENT HAS NOT C/O OF ANY BACK PAIN ONLY RIGHT LEG AND RIGHT HIP PAIN. IV IN LEFT HAND-NS @ 80ML/HR. FALL PRECAUTIONS IN PLACE AND HOURLY ROUNDS MADE. WILL CONTINUE WITH PLAN OF CARE AND NURSING TO MONITOR.
[2021-03-07 09:52] VITALS: BP 113/71
--- NOTE | 2021-03-07 12:06 | NUR ---
Pt discharging to home today. Uretereal stent placed yesterday. No needs.
--- NOTE | 2021-03-07 16:00 | NUR ---
PATIENT DISCHARGED TO HOME. DISCHARGE PAPERS REVIEWED AND SIGNED. IV REMOVED. NO PRESCRIPTIONS. PATIENT DENIES ANY FURTHER NEEDS. PATIENT TAKEN BY WHEELCHAIR TO EXIT. LEFT WITH BROTHER.
[2021-03-07 16:07] VITALS: BP 113/71
--- NOTE | 2021-03-08 15:39 | OP ---
[address] [address] OPERATIVE REPORT Name: DANITZA CUMMINS Room: [address] IN M.R.#: [id number] Admission: 03/05/21 Attend Phys: Macarena Ayala Discharge: 03/07/21 Date of : 57 Report #: [id number] THIS REPORT FOR: cc: Libia Ball Linda J. DO Haggard, Kent L MD ~ PREOPERATIVE DIAGNOSES: A 6.5 mm mid left ureteral stone, nonobstructing left lower pole stone. POSTOPERATIVE DIAGNOSES: A 6.5 mm mid left ureteral stone, nonobstructing left lower pole stone, urethral stricture disease. PROCEDURE: Cystoscopy, left retrograde pyelogram, left ureteroscopy with holmium laser lithotripsy videoscopic stone extraction with placement of left ureteral stent with attached string, urethral dilation. STAFF SURGEON: Deshawn Anders MD ANESTHESIA: General. ESTIMATED BLOOD LOSS: None. COMPLICATIONS: None. SPECIMENS: Left ureteral stone fragments. DRAINS: A 28 cm x 4.8-Tanzanian left ureteral stent with attached string. INDICATIONS: The patient is a 65-year-old white male with history of kidney stones. He actually presented with severe sciatica pain. He had a CT scan of his lumbar spine and found incidental 6.5 mm mid left ureteral stone on the left side, a nonobstructing left lower pole stone. Upon further questioning, he has had some left sided pain for the last 2-3 days. He was counseled regarding treatment options, elected for definitive cystoscopy, left retrograde pyelogram, possible ureteroscopy, possible holmium laser lithotripsy, possible placement of left ureteral stent. After risks and benefits of the procedure were explained, informed consent was obtained. DESCRIPTION OF PROCEDURE: The patient was taken to the operating room comfortably placed in the dorsal lithotomy position under adequate general anesthesia. He was sterilely prepped and draped in standard fashion exposing only genitalia. He received his antibiotics as prescribed. Appropriate timeout was carried out and all were in agreement. After appropriate timeout, attempt to place a 22 Tanzanian cystoscope in the urethra and met some resistance in the fossa navicular area of his urethra. Irena sounds from 16-Tanzanian to 26-Tanzanian were used to dilate this area. Now, I was able to take [place] 22[place] [address] OPERATIVE REPORT Name: DANITZA CUMMINS Room: [address]#: [id number] Admission: 03/05/21 Attend Phys: Macarena Ayala Discharge: 03/07/21 Date of : 57 Report #: [id number] cystoscope with the obturator in place into the urethra. The remaining part of the urethra was normal. Sphincter was intact. Prostate showed some prostatic hyperplasia. Bladder was systematically viewed. Both ureteral orifices were identified and normal. No bladder calculi seen or foreign body was observed. Mucosa was smooth. An 8-Tanzanian cone tip catheter placed in the left ureteral orifice and a retrograde pyelogram was performed showing an obstruction, mid ureter with dilation proximally. A 0.035 Glidewire was advanced up the left ureter of the kidney. Cystoscope was removed and a 4.5-Tanzanian tapered to 6.5-Tanzanian semirigid ureteroscope was advanced through the urethra through the transmural ureter up to the left ureter up to beyond the level of the mid ureter where I could identify the stone. I was able to grasp the stone. A 1.9-Tanzanian nitinol basket slowly extracted down to the point in the distal ureter, met a lot of resistance. At this point, disengaged the basket and left it there. The ureteroscope was put back in and a 272 micron holmium laser fiber set at 6.4 velazquez to fragment the stone into 2 fragments. I was able to grasp 2 stone fragments in the same basket and slowly extracted out without difficulty. Repeat ureteroscopy showed no sign of damage to the ureter and no residual fragments remained. Ureteroscope was then removed and a cystoscope was backloaded over the guidewire and a 28 x 4.8-Tanzanian ureteral stent was put in place and positioned with a good coil in the left renal pelvis, good coil in the bladder. The bladder was drained, cystoscope was removed. The string was left attached and secured to the outside of the phallus with Tegaderm. He was extubated in the operating room, transferred to [facility] with assistance and went to recovery in stable condition, having removed the stent on Thursday. Follow up in our office in 6 weeks with a KUB and renal ultrasound. <ELECTRONICALLY SIGNED> By: Deshawn Anders MD 03/08/21 1539 1806 1850Deshawn Anders MD /zeyad
[2021-03-12 21:06] LABS: STONE CA OXALATE DIHYDRATE 20 % (()); STONE CA OXALATE MONOHYDRATE 60 % (()); STONE COLOR Brown (()); STONE SIZE 2x5 mm (()); STONE URIC ACID 20 % (()); STONE WEIGHT 27 mg (())
== END 2021-03-07 16:00 | disposition home or self-care (01) | DRG 659 ==
LOC: M.ERS 15:51 → M.ORTHSURG 17:29 → M.TBA-ER 17:29 → M.ORTHSURG 18:54
PROVIDERS: Family Medicine; Internal Medicine; ADMIT Internal Medicine; ATTEND Internal Medicine
PROC: 0T778DZ Dilation of Left Ureter with Intraluminal Device, Via Natural or Artificial Opening Endoscopic (ICD-10-PCS; principal; 2021-03-06)
PROC: BT1F1ZZ Fluoroscopy of Left Kidney, Ureter and Bladder using Low Osmolar Contrast (ICD-10-PCS; principal; 2021-03-06)
PROC: 0TC78ZZ Extirpation of Matter from Left Ureter, Via Natural or Artificial Opening Endoscopic (ICD-10-PCS; principal; 2021-03-06)
DX: N13.2 Hydronephrosis with renal and ureteral calculous obstruction (principal); R65.11 Systemic inflammatory response syndrome (SIRS) of non-infectious origin with acute organ dysfunction; Z20.822 Contact with and (suspected) exposure to COVID-19; E78.5 Hyperlipidemia, unspecified; E11.9 Type 2 diabetes mellitus without complications; J45.909 Unspecified asthma, uncomplicated; I10 Essential (primary) hypertension; G40.909 Epilepsy, unspecified, not intractable, without status epilepticus; M54.30 Sciatica, unspecified side; N40.0 Benign prostatic hyperplasia without lower urinary tract symptoms; N17.9 Acute kidney failure, unspecified; N35.819 Other urethral stricture, male, unspecified site; I25.10 Atherosclerotic heart disease of native coronary artery without angina pectoris; I25.2 Old myocardial infarction; Z95.1 Presence of aortocoronary bypass graft; Z88.8 Allergy status to other drugs, medicaments and biological substances; Z91.030 Bee allergy status

== ENCOUNTER → 2021-04-15 | Outpatient (CLI) | payer MEDICARE ==
[~2021-04-15] MED LIST changes: +GABAPENTIN100 MG PO; +ZETIA10 MG PO
== END ==
LOC: M.MRI 03-05 09:11 → M.LAB 04-10 08:30
PROVIDERS: ATTEND Family Medicine
DX: N20.0 Calculus of kidney (principal); I77.9 Disorder of arteries and arterioles, unspecified; M54.5 Low back pain; R26.89 Other abnormalities of gait and mobility; E11.9 Type 2 diabetes mellitus without complications; R53.1 Weakness; I10 Essential (primary) hypertension; K76.0 Fatty (change of) liver, not elsewhere classified

== ENCOUNTER 2021-06-27 01:18 | Emergency (ER) | payer MEDICARE ==
[~2021-06-27] VITALS: Ht 180.3 cm; Wt 86.2 kg
[2021-06-27 02:03] LABS: URINE BILIRUBIN NEGATIVE (Negative); URINE BLOOD TRACE (Negative); URINE CLARITY CLEAR; URINE COLOR YELLOW; URINE GLUCOSE-RANDOM 3+ (Negative); URINE KETONES NEGATIVE (Negative); URINE LEUKOCYTES-REFLEX NEGATIVE (Negative); URINE NITRITE-REFLEX NEGATIVE (Negative); URINE PROTEIN NEGATIVE (Negative); URINE SPECIFIC GRAVITY <= 1.005 (1.005-1.030); URINE UROBILINOGEN 0.2 E.U./dl (0.2-1.0)
[2021-06-27 02:05] LABS: ABSOLUTE BASOPHILS 0.1 thou/uL (0.0-0.2); ABSOLUTE EOSINOPHILS 0.3 thou/uL (0.0-0.7); ABSOLUTE LYMPHOCYTES 1.2 thou/uL (0.8-5.3); ABSOLUTE MONOCYTES 0.8 thou/uL (0.0-1.2); BASOPHILS 1.2 %; EOSINOPHILS 3.3 %; HEMATOCRIT 38.3 % (42.0-52.0); HEMOGLOBIN 12.8 gm/dL (14.0-18.0); LYMPHOCYTES 14.7 %; MCH 27.3 pg (26.0-34.0); MCHC 33.4 g/dL (28.0-37.0); MCV 81.7 fL (80.0-100.0); MONOCYTES 9.4 %; MPV 8.8 fl. (7.2-11.1); NUCLEATED RBCS 0 /100WBC; PLATELET COUNT* 274 thou/uL (150-400); POLYS 71.4 %; RBC 4.69 mil/uL (4.50-6.00); RDW-CV 14.2 % (10.5-14.5); WBC 8.3 thou/uL (4.0-11.0)
[2021-06-27 02:21] LABS: CALCIUM 8.7 mg/dL (8.5-10.1); POTASSIUM 3.9 mmol/L (3.5-5.1)
[2021-06-27 02:32] LABS: ALBUMIN 3.9 g/dL (3.4-5.0); TOTAL BILIRUBIN 0.4 mg/dL (<0.1-1.0)
[2021-06-27 04:29] VITALS: BP 139/75
--- NOTE | 2021-06-27 11:43 | EKG ---
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: : 1955 Requested By: Saskia Parra Order Number: [id number] MD: Yordan Hdz Measurements Intervals [place] Rate: 95 P: 42 [place]: 161 QRS: 8 QRSD: 134 T: 9 QT: 382 QTc: 481 Interpretive Statements Sinus rhythm Probable left atrial enlargement Right bundle branch block Inferior infarct, old Compared to ECG 03/05/2021 16:00:42 No significant changes Electronically Signed On 06-27-2021 11:43:21 CDT by Yordan Hdz [email or web address] <ELECTRONICALLY SIGNED> By: Florinda Hdz MD, [facility] 06/27/21 1143 0124 0124 Florinda Hdz MD, [facility] /EPI
== END 2021-06-27 04:29 | disposition home or self-care (01) ==
LOC: M.ERS 01:18
PROVIDERS: Emergency Medicine
DX: R06.00 Dyspnea, unspecified (principal); Z20.822 Contact with and (suspected) exposure to COVID-19; R05 Cough; E78.5 Hyperlipidemia, unspecified; E11.9 Type 2 diabetes mellitus without complications; I10 Essential (primary) hypertension; J45.909 Unspecified asthma, uncomplicated; Z91.030 Bee allergy status; Z88.8 Allergy status to other drugs, medicaments and biological substances